=== PATIENT | female | born 1990 | race Caucasian/White ===

== ENCOUNTER 2017-04-28 15:22 | Emergency (ER) | payer BC, OTHER ==
--- NOTE | 2017-04-28 15:49 | RAD ---
Indication: Left knee pain 4 views of left knee demonstrates no fracture. No other bone or joint. IMPRESSION: No fracture of the left knee is noted.
[2017-04-28 16:06] VITALS: BP 106/71
--- NOTE | 2017-05-01 18:04 | UC ---
Knee Pain HPI - HPI Summary HPI Summary: 27 year old female presents with complains of left knee pain after fall while skiing. - History of Current Complaint Chief Complaint: UCUpperExtremity Stated Complaint: LEFT KNEE INJURY Time Seen by Provider: 04/28/17 15:52 Hx Obtained From: Patient Hx Last Menstrual Period: 04/09/17 Onset/Duration: Sudden Onset Severity Initially: Moderate Severity Currently: Moderate Pain Intensity: 2 Pain Scale Used: 0-10 Numeric Character: Sharp Aggravating Factor(s): Movement Associated Signs And Symptoms: Positive: Swelling Able to Bear Weight: No - crutches - Allergies/Home Medications Allergies/Adverse Reactions: Allergies Allergy/AdvReac Type Severity Reaction Status Date / Time No Known Allergies Allergy Verified 04/30/17 14:18 Home Medications: Home Medications Ascorbic Acid [C 500] 500 mg PO 04/28/17 [History] Ibuprofen TAB* [Advil TAB*] 400 mg PO Q6H PRN 04/28/17 [History Confirmed ] Melatonin 5 mg PO BEDTIME 04/28/17 [History Confirmed 04/28/17] Vitamin B Complex CAP* [B Complex CAP*] 1 cap PO DAILY 04/28/17 [History Confirmed 04/28/17] PMH/Surg Hx/FS Hx/Imm Hx Previously Healthy: Yes - Surgical History Surgical History: Yes Surgery Procedure, Year, and Place: T&A - Social History Alcohol Use: Occasionally Substance Use Type: None Smoking Status (MU): Never Smoked Tobacco - Immunization History Most Recent Influenza Vaccination: NO Most Recent Tetanus Shot: 09/2015 Most Recent Pneumonia Vaccination: never Review of Systems Constitutional: Negative Skin: Negative Eyes: Negative ENT: Negative Respiratory: Negative Cardiovascular: Negative Gastrointestinal: Negative Genitourinary: Negative Motor: Negative Neurovascular: Negative Musculoskeletal: Other: - left knee sprain/swelling Neurological: Negative Psychological: Negative All Other Systems Reviewed And Are Negative: Yes Physical Exam Triage Information Reviewed: Yes Vital Signs: Initial Vital Signs Temp 38.0 C 04/28/17 15:56 Pulse 77 04/28/17 15:56 Resp 18 04/28/17 15:56 BP 106/71 04/28/17 15:56 Pulse Ox 99 04/28/17 15:56 Vital Signs Reviewed: Yes Eye Exam: Normal ENT Exam: Normal Dental Exam: Normal Neck exam: Normal Neck: Positive: 1 Respiratory Exam: Normal Cardiovascular Exam: Normal Abdominal Exam: Normal Musculoskeletal: Positive: Other: - left knee sprain/swelling Neurological Exam: Normal Psychological Exam: Normal Skin Exam: Normal Knee Pain Course/Dx - Differential Dx/Diagnosis Provider Diagnoses: left knee sprain/swelling Discharge - Discharge Plan Condition: Stable Disposition: HOME Prescriptions: Ibuprofen TAB* [Motrin TAB* 800 MG] 800 mg PO Q6H #30 tab Patient Education Materials: Knee Pain (ED) Referrals: Delfino Montgomery MD [Medical Doctor] - Elvie Gomez MD [Primary Care Provider] -
== END 2017-04-28 16:43 | disposition home or self-care (01) ==
LOC: UCCORT 15:22
DX: S83.92XA Sprain of unspecified site of left knee, initial encounter (principal); V00.321A Fall from snow-skis, initial encounter; Y93.23 Activity, snow (alpine) (downhill) skiing, snowboarding, sledding, tobogganing and snow tubing; Y92.9 Unspecified place or not applicable
CPT/HCPCS: 99213; G0463

== ENCOUNTER 2017-06-09 06:40 | Day surgery (SDC) | payer BC ==
--- NOTE | 2017-05-22 20:15 | HP ---
PREOPERATIVE HISTORY AND PHYSICAL: DATE OF SURGERY: 06/09/17 [facility] ATTENDING SURGEON: Vonda Gaitan MD. * (DICTATED BY GUILHERME RETANA) PROCEDURE: Left knee arthroscopy, anterior cruciate ligament reconstruction, quad autograft. CHIEF COMPLAINT: Left knee. HISTORY OF PRESENT ILLNESS: Harriet is a 27-year-old female who presents to the clinic for her left knee ACL tear sustained during an injury on 04/28/17 when she was skiing. She has instability of the knee and has failed conservative measures to include physical therapy, therefore has agreed to undergo left knee arthroscopy, anterior cruciate ligament reconstruction with quad autograft with Dr. Gaitan on 06/09/17. PAST MEDICAL HISTORY: Asthma, which is controlled. PAST SURGICAL HISTORY: 1. Tonsillectomy and adenoidectomy. 2. [place] teeth removal. The patient denies prior complications with anesthesia. MEDICATIONS: 1. Melatonin 5 mg 1 by mouth every night. 2. Vitamin B and C complex 500 mg 1 by mouth every day. 3. Ibuprofen 200 mg as needed for pain. ALLERGIES: No known drug allergies. FAMILY HISTORY: Positive for cancer and hypertension in her father. SOCIAL HISTORY: She lives with her . She is currently working. She denies tobacco use. She reports occasional alcohol consumption. REVIEW OF SYSTEMS: A 14-point review of systems was reviewed with patient. Positive for current complaint, otherwise negative. Denies DVT, PE, history of bleeding disorder, fever, chills or chest pain or shortness of breath. PHYSICAL EXAMINATION GENERAL: A 27-year-old well-developed, well-nourished female in no acute distress. Alert and oriented x3. Appropriate mood and affect. VITAL SIGNS: Height 68, weight 153. Blood pressure 120/70, respiratory rate 18 , temperature 97.6. BMI 23.3. HEENT: Normocephalic, atraumatic, PERRLA. Throat clear. NECK: Supple. PULMONARY: Lungs clear to auscultation bilaterally. No wheezing, rhonchi, or rales. CARDIO: Regular rate and rhythm, S1, S2. No murmurs, gallops, or rubs. No edema. ABDOMEN: Positive bowel sounds. Soft, nontender. NEUROLOGICAL: Alert and oriented x3. Cranial nerves grossly intact. MUSCULOSKELETAL: Left lower extremity: Skin is intact. No warmth or erythema. Mild effusion. Nontender over the joint lines. 2B Bakari, negative posterior drawer. Stable to varus and valgus stress. Range of motion 0 to 135. Calves soft and nontender. +2 PT pulses. Sensation intact to light touch distally. DIAGNOSTIC STUDIES: MRI and x-rays reveal full thickness ACL rupture. IMPRESSION: Left knee anterior cruciate ligament tear. PLAN/RECOMMENDATIONS: The patient is scheduled to undergo a left knee arthroscopy, anterior cruciate ligament reconstruction with quad autograft. She will return to the office in 8 days for postoperative followup and suture removal. Percocet was sent to the patient's pharmacy for postop pain management. GUILHERME RETANA [id number]/[facility] [place] #: [id number] MTDD
[~2017-06-09 06:40] MED LIST: Buffered Lidocaine 0.9% SYRIN* 5 ML/SYR SYRINGE INTRADERM ONE; Famotidine IV* 10 MG/ML 2 ML (20 mg) IV ONE; Famotidine IV* 10 MG/ML 2 ML (20 mg) ONE; Metoclopramide TAB* 10 MG ONE; Metoclopramide TAB* 10 MG PO ONE
[2017-06-09] MEDS ORDERED: ceFAZolin 2 GM in 100 MLS NS (*) BAG IVPB ONE (06:52)
[2017-06-09] MEDS ORDERED: Bupivacaine 0.25% SDV* 30 ML ONE (07:05)
[2017-06-09] MEDS ORDERED: Lidocaine 1% MPF wEPI 200,000* 30 ML SDV ONE (07:05)
[2017-06-09] MEDS ORDERED: KETAMINE HCL* 50 MG/ML 10 ML VIAL ONE (07:18)
[2017-06-09] MEDS ORDERED: Propofol* 10 MG/ML 20 ML BTL IV PUSH ONE (07:18)
[2017-06-09] MEDS ORDERED: Dexamethasone IV* 4 MG/ML 1 ML (4 MG) ONE (07:18)
[2017-06-09] MEDS ORDERED: Lidocaine 2% PF * 5 ML VIAL ONE (07:18)
[2017-06-09] MEDS ORDERED: fentaNYL* 50 MCG/ML 2 ML VIAL (100 MCG VIAL) ONE ×3 (07:18→08:56)
[2017-06-09] MEDS ORDERED: Ketorolac INJ* 30 MG/ML 1 ML VIAL ONE (07:18)
[2017-06-09] MEDS ORDERED: Ondansetron INJ* 2 MG/ML VIAL ONE (07:18)
[2017-06-09] MEDS ORDERED: Midazolam* 1 MG/ML 2 ML VIAL (2 MG) ONE ×2 (07:19→07:42)
[2017-06-09] MEDS ORDERED: HYDROmorphone INJ* 1 MG/ML CARPUJECT SYRINGE ONE (09:26)
[2017-06-09] MEDS ORDERED: Scopolamine 1.5 mg* PATCH TRANSDERM PRN (10:00)
[2017-06-09] MEDS ORDERED: Ondansetron INJ* 2 MG/ML VIAL IV PRN (10:00)
[2017-06-09] MEDS ORDERED: fentaNYL* 50 MCG/ML 2 ML VIAL (100 MCG VIAL) IV PRN (10:00)
[2017-06-09] MEDS ORDERED: Naloxone* 0.4 MG/ML 1 ML VIAL IV PRN (10:00)
[2017-06-09] MEDS ORDERED: oxyCODONE/Acetamin 5/325 MG* TAB PO PRN (10:00)
[2017-06-09] MEDS ORDERED: oxyCODONE/Acetamin 5/325 MG* TAB ONE (10:22)
[2017-06-09 10:58] VITALS: BP 118/80
--- NOTE | 2017-06-10 12:45 | OP ---
CC: PCP, Elvie Smith MD * DATE OF OPERATION: 06/09/17 [facility] DATE OF : 89 SURGEON: Vonda Gaitan MD SOLDER SPRAYER: GUILHERME Jha. An agency sales management assistant was needed for the entirety of the case to help with positioning, retraction, and utilized all portions of the case. ANESTHESIOLOGIST: Dr. Nguyen. ANESTHESIA: General. PRE-OP DIAGNOSIS: Left knee anterior cruciate ligament grade 3 rupture. POST-OP DIAGNOSIS: Left knee anterior cruciate ligament grade 3 rupture. OPERATIVE PROCEDURE: Left knee arthroscopy with ACL reconstruction using quad autograft. COMPLICATIONS: None. ESTIMATED BLOOD LOSS: Minimal. TOURNIQUET TIME: 22 minutes at 250 mmHg. IMPLANTS USED: One 7 x 25 mm Softsilk and one 11 x 25 mm BioComposite screw. INDICATIONS: Harreit Adam is a pleasant 27-year-old female who sustained injury to her left knee on 04/28 when she was diagnosed with an ACL rupture. She worked on preoperative physical therapy with range of motion and had persistent instability. Elected to proceed with ACL reconstruction. We discussed the graft option and she elected for a quad. Risks and benefits of surgery were discussed at length including but not limited to bleeding, infection, damage to nerves, vessels, surrounding structures, wound nonhealing, persistent pain, need for further surgery, scarring, stiffness, incomplete relief of symptoms, re-rupture, risk of anesthesia, risks of DVT. She is elected to proceed. DESCRIPTION OF PROCEDURE: The patient was greeted in the preoperative area by the attending surgeon. Correct extremity was marked. Consent was confirmed. The patient was then brought back to the operating suite. She was placed in supine position on the operating table. She then underwent general anesthesia with LMA intubation after which she was appropriately positioned in the bed. The lateral post was positioned. A mccartney bag was placed to keep the knee in approximately 90 degrees. The left leg was examined. Range of motion was 0 to 140 degrees. Limited varus and valgus stress, 2B Bakari, negative posterior drawer. Calf was soft. The left leg was then prepped and draped in the usual sterile fashion beginning with chlorhexidine soap, scrub, and alcohol wipe and a final prep with ChloraPrep. After appropriate surgical pause indicating side, site, procedure and administration of antibiotics, the knee was intra-articularly injected with 1% lidocaine with epi. The Esmarch was used to exsanguinate the limb and the tourniquet was inflated to a total pressure of 250 mmHg. A midline incision over the quadriceps was done distally with 10 blade. Soft tissue was carefully dissected to expose the paratenon, which was incised. The center 9 mm of the tendon were then carefully harvested in full thickness graft using a 10 blade. A bone block was also harvested using the sagittal saw for about 9 mm width and 25 mm in length. The total length of the graft was approximately 8.5 cm. Once this was harvested, this was prepared on the back table by the agency sales management assistant and the attending. The attending was closing the quadriceps defect with 0 Vicryl in an interrupted fashion. Once the quadriceps tendon was closed, the tourniquet was deflated with total tourniquet time of 22 minutes. Attention was directed to the arthroscopic portion. The 11 blade was used to make an incision in the high lateral portal. The scope was positioned in the joint. The patellofemoral joint was intact with grade 0 to 1 changes. The medial and lateral gutters were intact. The scope was brought into the notch where there was abundant synovitis and inflammation. The anterior medial portal was made using needle localization and the shaver was used to remove the ligamentum as well as fat pad. The ACL was probed and found to have grade 3 tearing and found to be ruptured, although there were strands that were still intact. The PCL was intact. The scope was brought into the medial compartment, which had grade 0 to 1 changes. The medial meniscus was intact and it was probed carefully. The knee was fixed in [id number] position. The lateral meniscus was intact including the root. There was no obvious fraying. There was a small area of grade 1 to 2 changes with no unstable flaps along the weightbearing surface of the plateau close to the mid portion of the meniscus. Once the diagnostic arthroscopy portion was completed, attention was directed to the notch. The knee was placed at 90 degrees of flexion. The [place] and biters were used to debride the ACL back to expose the femoral foot-print which was then prepared with electrocautery device. It was then provisionally marked with starting awl. This served as a executive pilot hole for reference point of where the graft should be. The scope was placed in the medial portal to confirm placement. Once appropriate footprint was identified, attention was directed to the tibial tunnel and the tip-to-tip guide was set to about 250 degrees. The 15 blade was used to make a separate incision along the tibia. Dissection was taken down to the bone and elevator was used to remove any soft tissues where the footprint would be. The tip-to-tip guide was placed again and the guidewire was placed in the center of the tibial footprint. Once the optimal position was identified, this was overdrilled with a size 11 full bore reamer to compensate for the tibial portion of the quadriceps graft. The tunnel was then carefully rasped. All loose debris was removed. This tunnel was in good position. The tunnel placement was decided by based on the PCL as well as the reference point of the posterior border of the meniscus and the tibial spine. Once this was completed, attention was directed to the femoral tunnel. With the Chahal and Nephew straight guide placed, the knee was placed in hyperflexion. The Beath pin was then drilled to the center of the femoral footprint and out laterally through the IT band and the skin. This was then overdrilled with size 9 mm low profile reamer to a depth of 27 mm. All excess bone and debris was removed. The tunnel was then carefully notched. Images were obtained and found to have good back wall and appropriate position. The # 2 Ethibond suture were placed through the eyelet of the Beath pin and advanced through the lateral leg in an antegrade fashion through the tibial tunnel. The graft which had been previously placed on tension was brought to the operating table and then passed under direct arthroscopic visualization to be well seated in the femoral tunnel. This was then secured with 7 x 25 mm Softsilk screw with excellent purchase. The knee was then taken to full extension and was found to have no impingement anteriorly. The knee was then cycled approximately 15 times to remove any creep from the graft. The scope was brought back into the joint and was found to have no change in alignment or position of the graft. The knee was then placed in approximately 20 degrees of flexion with tension on the tibial sutures and nitinol was placed in posterior drawer. The size 11 x 25 mm BioComposite screw was advanced into the tunnel and did compress the graft without disrupting the graft this side. This was placed with excellent purchase. The knee was taken through range of motion. Bakari was assessed and found to be stable. The scope was brought back into the joint and the graft was in good position. The wounds were copiously irrigated with sterile saline. Excess bone graft that was obtained from drilling was then placed into the patellar defect and oversewn with 0 Vicryl. The wounds were copiously irrigated with sterile saline. The portals were closed with 3-0 nylon. The quadriceps wound was closed with 2-0 Vicryl and dion. The tibial wound was closed 2-0 Vicryl and 3-0 Monocryl. The wounds were injected with 0.25% Marcaine plain. The knee was intra-articularly injected with 0.25% Marcaine plain. Sterile dressings were applied, a Cryo/Cuff and a hinged knee brace locked at 0 degrees at full extension. Patient was then awoken from anesthesia and transferred to PACU in stable condition. POSTOPERATIVE PLAN: She will be discharged on pain medication and antibiotics. She will be allowed to be weightbearing as tolerated. She will start physical therapy this week. I will see the patient back in 6 to 8 days. DVT prophylaxis was discussed and deferred due to no previous personal or family history. [id number]/[facility] #: [id number] HECTOR
[2017-06-12] MEDS ORDERED: Scopolamine PATCH Remove* 1 NOTE MISC PATCH OFF ONE (10:00)
== END 2017-06-09 10:56 | disposition home or self-care (01) ==
LOC: OREAST 06:40
PROVIDERS: ATTEND Orthopaedic Surgery
DX: S83.512A Sprain of anterior cruciate ligament of left knee, initial encounter (principal); W17.81XA Fall down embankment (hill), initial encounter; Y93.23 Activity, snow (alpine) (downhill) skiing, snowboarding, sledding, tobogganing and snow tubing; Y92.39 Other specified sports and athletic area as the place of occurrence of the external cause; J45.909 Unspecified asthma, uncomplicated; F41.8 Other specified anxiety disorders; R42 Dizziness and giddiness
CPT/HCPCS: 81025; A9270-GY; C1713; J1100; J1170; J1885; J2001; J2250; J2405; J2704; J3010

== ENCOUNTER 2019-04-12 16:54 | Inpatient (IN) | payer BC ==
--- NOTE | 2019-04-12 18:04 | HP ---
General Information - Reason for Visit IUP at 39-4/7 with spontaneous rupture of membranes in early labor - General Information Maternal Age: 28 Grav: 2 Para: 1 SAB: 0 IEA: 0 Estimated Due Date: 04/15/19 Determined By: LMP Gestational Age in Weeks/Days: 39-4/7 Maternal Blood Type and Rh: A Positive - Results this Serology/RPR Result: Non-Reactive Rubella Result: Immune HBsAg Result: Negative HIV Result: Negative GBS Culture Result: Negative Past Medical History Delivery History: Hx Complicated Vaginal Delivery Delivery History Comment: 12/2015 liveborn 7lbs 12oz female. Delivered at [facility] with Ebony Sheldon LM Pertinent Past Medical History: See Records Past Medical History Comment: ADHD - not currently taking any medication mgmt Asthma Pertinent Past Surgical History: See Records Past Surgical History Comment: 2003 Tonsillectomy 2006 [place] tooth extraction Pertinent Family History: See Records Family History Comment: Father: Hypertension Mother: Thyroid cancer, Ulcerative colitis Brother 1: Heart murmur MGM: Stroke, [place], CAD, Thyroid cancer. , stroke MGF: Thyroid cancer, , stroke, cancer - Antepartal Records Antepartal Records: Reviewed, Uncomplicated Review of Systems Constitutional: Comfortable CV Complaint: No Respiratory: Shortness of Breath: No Gastrointestinal: No Nausea/Vomiting, Normal Bowel Movement Genitourinary: Leaking Fluid - since 1529 today, No Dysuria, No Bleeding Musculoskeletal: No Complaint, No Epigastric Pain Neurological: No Headache, No Visual Changes Movement: Normal Exam Allergies/Adverse Reactions: Allergies No Known Allergies Allergy (Verified 05/26/17 15:08) BP 123/75 HR 95 RR 18 T 97.5 SpO2 99% on RA Lab Values - Entire Visit: Laboratory Tests 04/12/19 17:09 Vag Amniotic Fld Detect Positive - Measurements Height: 5 ft 8 in Weight: 186 lb Weight in lbs: [phone] Body Mass Index (BMI): 28.3 Pre- Weight: 140 lb Weight Gained This : 46 lbs and 0 ozs - Exam Breast: Breast Exam Deferred CVA: No CVA Tenderness Extremities: No Edema Heart: Normal Rhythm/Heart Sounds HEENT: No Significant Findings Lungs: Clear Bilaterally Rectal: Rectal Exam Deferred Reflexes: DTR 2+ Thyroid: No Thyromegaly - Abdominal Exam Abdomen Exam: Non-Tender - Ultrasound/Biophysical Profile Ultrasound Status: Not Done Targeted Exam Findings See L&D Outpatient Visit Provider Note for Findings: N/A Estimated Weight: EFW 7.5-8lbs by Da Cervical Exam: 1cm, 2cm Effacement: 50% Station: -1 Presenting Part: Vertex - by Alyx Casper CNM in the office today Membrane Status: Leaking Amniotic Fluid Evaluation: Positive ROM Plus Sterile Speculum Exam: Not done Bleeding/Discharge: None EFM Findings - External Monitor Findings Baseline Heart Rate: 140 External Monitor Findings: Accelerations Present, No Pattern of Variable or Late Decelerations, Variability Moderate, Baseline Stable External Monitor Findings Comment: No evidence of metabolic acidemia Contractions: Irregular, Mild Assessment/Plan - Assessment IUP at 39-4/7 with spontaneous rupture of membranes in latent labor No evidence of metabolic acidemia GBS negative - Plan Plan: Admit - Anticipate Vaginal Delivery Plan Comment: P: Discussed recommendation to augment labor in presence of rupture. Pt hoping for minimal intervention after being induced with first . However also doesn't want to increase the risk of infection. Would like to settle in, eat dinner and re-evaluate around 8pm, sooner as needed. - Date/Time of Admission Date of Admission: 04/12/19 Time of Admission: 17:52
--- NOTE | 2019-04-12 20:16 | PN ---
Progress Note - Progress Note Date of Service: 04/12/19 Note: Pt resting comfortably. Verbalizes readiness to "get things going". O: BP 123/75 HR 95 FHT 140bpm. Moderate variability. +Accels. No decels UCs q 6 min, mild VE 2cm/50%/vtx -1, +Bloody show A: IUP at 39-4/7 with spontaneous rupture of membranes in latent labor No evidence of metabolic acidemia P: PARQ IV pitocin augmentation. Pt desires. Plan IV placement and IV pitocin per low dose protocol.
[2019-04-12] MEDS ORDERED: Oxytocin in LR* 20 UNITS/1,000 ML BAG IVPB SCH (21:00)
[2019-04-12] MEDS ORDERED: Lactated Ringers 1000 ML Bag* 1,000 ML IV SCH (21:00)
[2019-04-12 21:12] LABS: Urine Benzodiazepine Screen None Detected (None Detect); Urine Opiates Screen None Detected (None Detect)
[2019-04-12 21:31] LABS: ABS Eosinophils 0.1 10^3/ul (0-0.6); ABS Lymphocytes 1.7 10^3/ul (1.0-4.8); ABS Monocytes 0.5 10^3/ul (0-0.8); ABS Neutrophils 7.9 10^3/ul (1.5-7.7); Eosinophil % 0.8 %; Hematocrit 32 % (35-47); Lymphocyte % 16.5 %; Mean Corpuscular HGB Conc 35 g/dL (31-36); Mean Corpuscular Hemoglobin 30 pg (27-31); Mean Corpuscular Volume 86 fL (80-97); Mean Platelet Volume 11.6 fL (7.4-10.4); Nucleated Red Blood Cells % 0.1; Platelet Count 134 10^3/uL (150-450); Red Blood Count 3.66 10^6 /uL (3.70-4.87); Red Cell Distribution Width 14 % (10-15); White Blood Count 10.2 10^3/uL (3.5-10.8)
--- NOTE | 2019-04-12 21:54 | PN ---
Progress Note - Progress Note Date of Service: 04/12/19 Note: S: Pt reports feeling UCs since starting IV pitocin. Interested in discussing amniotomy of forebag if possible as she is motivated to get into labor. O: BP 123/75 HR 95 T 98.7 FHT 140bpm. Moderate variability. +Accels. No decels UCs q 2-3 IV pitocin at 6mu/min VE 3cm/80%/vtx -1, forebag felt, amniotomy to clear fluid A: IUP at 39-4/7 with spontaneous rupture of membranes in latent labor No evidence of metabolic acidemia P: Amniotomy of forebag reasonable per exam, done. Will continue to monitor maternal/ status closely. Anticipate progression into active labor.
[2019-04-13] MEDS ORDERED: fentaNYL* 50 MCG/ML 2 ML VIAL (100 MCG VIAL) ONE (00:34)
--- NOTE | 2019-04-13 00:34 | PN ---
Progress Note - Progress Note Date of Service: 04/13/19 Note: S: Pt was in tub but got out with increased discomfort of UCs. Tried nitrous oxide with only modest relief. Would like to discuss analgesia in labor O: BP 133/76 HR 86 SpO2 100% on RA FHT 135bpm. Moderate variability. +Accels. No decels UCs q 2 min, IV pitocin at 6mu/min VE 6-7cm/80%/vtx -1, clear fluid A: IUP at 39-5/7 in labor No evidence of metabolic acidemia P: PARQ ITF vs. epidural. Pt desires ITF. Anesthesia paged for consult.
[2019-04-13] MEDS ORDERED: Dibucaine 1% 28.35 GM TUBE PR PRN (01:24)
[2019-04-13] MEDS ORDERED: Acetaminophen TAB* 325 MG PO PRN (01:24)
[2019-04-13] MEDS ORDERED: Glycerin ADULT SUPP PR PRN (01:24)
[2019-04-13] MEDS ORDERED: Witch Hazel PAD* JAR TOPICAL PRN (01:24)
--- NOTE | 2019-04-13 01:32 | PROCNOTE ---
[facility] OB: Delivery Note - Delivery A Date of : 04/13/19 Time of : 01:02 [place] Sex: Male - "C[place] White" Score 1 Minute: 9 Score 5 Minutes: 9 Gestational Age in Weeks and Days at Delivery: 39 Weeks and 5 Days Delivery Method: Spontaneous Vaginal Labor: Spontaneous - augmented with IV pitocin, amniotomy of forebag Did Patient attempt ?: N/A, No Previous Amniotic Fluid: Clear Estimated Blood Loss: 300 Anesthesia/Analgesia: ITF/Spinal for Labor - placed by Dr. Bravo, Nitrous-Labor Delivered By: Ajit Connors - Nursery Level of Nursery: Regular/Bedside - Perineum Perineal Injury: 1st Degree - repaired with 3-0 Rapide under intrathecal analgesia. Pt tolerated well Perineal Repair: By Delivering Practioner - Events Delivery Events of Note: Pitocin During Labor - Additional Delivery Notes Additional Delivery Notes: Pt admitted with spontaneous rupture of membranes to clear fluid in latent labor. Consented to active management with IV pitocin and amniotomy of forebag with expected progression to complete. Length of labor 3 hours, 23 min. Pushed x 1 min. liveborn male. Slow, controlled delivery of head. OA to QUANG. Posterior arm delivered spontaneously after head followed by shoulders. Infant vigorous with spontaneous cry. HR>110bpm. Delivered to maternal abdomen. Cord clamped x 2 and cut by FOB when pulsations ceased. Spontaneous delivery intact placenta. Membranes complete. Fundus firm to massage with IV pitocin infusing. Minimal bleeding noted. Repair as above. EBL 300mL. At time of note mother and infant in stable condition. Breast feeding initiated.
[2019-04-13] MEDS ORDERED: Oxytocin in LR* 20 UNITS/1,000 ML BAG IVPB SCH (02:00)
[2019-04-13] MEDS ORDERED: Lactated Ringers 1000 ML Bag* 1,000 ML IV SCH (02:00)
[2019-04-13] MEDS: Ibuprofen TAB* 600 MG PO SCH ×4 (04:11→23:01)
[2019-04-13] MEDS: Docusate CAP* 100 MG PO SCH ×3 (10:22→20:44)
[2019-04-14 06:46] LABS: ABS Eosinophils 0.1 10^3/ul (0-0.6); ABS Lymphocytes 1.7 10^3/ul (1.0-4.8); ABS Monocytes 0.6 10^3/ul (0-0.8); Eosinophil % 0.7 %; Hematocrit 31 % (35-47); Hemoglobin 10.3 g/dL (12.0-16.0); Lymphocyte % 19.9 %; Mean Corpuscular HGB Conc 34 g/dL (31-36); Mean Corpuscular Hemoglobin 29 pg (27-31); Mean Corpuscular Volume 87 fL (80-97); Platelet Count 121 10^3/uL (150-450); Red Blood Count 3.53 10^6 /uL (3.70-4.87); Red Cell Distribution Width 14 % (10-15); White Blood Count 8.3 10^3/uL (3.5-10.8)
[2019-04-14 08:03] VITALS: BP 125/81
[2019-04-14] MEDS: Ibuprofen TAB* 600 MG PO SCH (08:55)
[2019-04-14] MEDS: Docusate CAP* 100 MG PO SCH (08:55)
[2019-04-14] MEDS ORDERED: Ferrous Gluconate TAB* 324 MG TAB PO SCH (09:00)
== END 2019-04-14 10:30 | disposition home or self-care (01) | DRG 560 ==
LOC: MCHOBOUT 16:54 → MCHOB 17:52
PROVIDERS: ADMIT Midwife; ATTEND Midwife
PROC: 10E0XZZ Delivery of Products of Conception, External Approach (ICD-10-PCS; principal; 2019-04-13)
PROC: 4A1HXCZ Monitoring of Products of Conception, Cardiac Rate, External Approach (ICD-10-PCS; 2019-04-13)
PROC: 0HQ9XZZ Repair Perineum Skin, External Approach (ICD-10-PCS; 2019-04-13)
PROC: 10907ZC Drainage of Amniotic Fluid, Therapeutic from Products of Conception, Via Natural or Artificial Opening (ICD-10-PCS; 2019-04-13)
DX: O70.0 First degree perineal laceration during delivery (principal); Z37.0 Single live birth; Z3A.39 39 weeks gestation of pregnancy
CPT/HCPCS: 36415; 80307; 84112; 85025; 86850; 86900; 86901; A9270-GY; J3010